=== PATIENT | male | born 1970 ===

== ENCOUNTER 2021-10-22 08:12 | Outpatient (REF) | payer OTHER, SELFPAY ==
[2021-10-22 08:27] LABS: MANUAL DIFF FLAG NO
[2021-10-22 09:00] LABS: Basophils Absolute Auto 0.1 X10*3/uL (0.0-0.2); Basophils Percent Auto 2.1 % (0-2); Eosinophils Absolute Auto 0.2 X10*3/uL (0.0-0.4); Eosinophils Percent Auto 4.8 % (0-4); Hematocrit 43.7 % (42.0-52.0); Imm Gran Abs Auto 0.01 X10*3/uL (0.00-0.03); Imm Gran Pct Auto 0.2 % (0.0-0.4); Lymphocytes Absolute Auto 1.5 X10*3/uL (1.2-4.9); Lymphocytes Percent Auto 33.6 % (20-40); Mean Corpuscular Volume 84.4 fL (80.0-98.0); Mean Platelet Volume 10.3 fL (9.4-12.4); Monocytes Absolute Auto 0.4 X10*3/uL (0.1-1.2); Monocytes Percent Auto 9.9 % (2-11); Neutrophils Absolute Auto 2.1 x10*3/uL (2.0-8.3); Neutrophils Percent Auto 49.4 % (45-73); Platelet Count 278 X10*3/uL (160-400); Red Blood Count 5.18 X10*6/uL (4.60-5.80); Red Cell Distribution Width 13.1 % (11.0-16.0); White Blood Count 4.3 X10*3/uL (4.8-10.8)
[2021-10-22 09:10] LABS: Estimated Average Glucose 114 mg/dL; Hemoglobin A1c % 5.6 %
[2021-10-22 10:17] LABS: Prostate Specific Antigen Scr 0.74 ng/mL (<0.05-4.0); TSH reflex Free T4 1.52 uIU/mL (0.32-4.0)
[2021-10-22 10:19] LABS: Alanine Aminotransferase 14 U/L (0-40); Albumin Level 4.1 g/dL (3.5-5.0); Alkaline Phosphatase 58 U/L (39-117); Anion Gap 13 (12-20); Aspartate Amino Transferase 21 U/L (5-37); Bilirubin Total 0.9 mg/dL (0.0-1.0); Blood Urea Nitrogen 17 mg/dL (9-16); Calcium 9.6 mg/dL (8.4-10.2); Carbon Dioxide 26 mmol/L (22-29); Chloride 105 mmol/L (96-108); Cholesterol 196 mg/dL; Estimated Glomerular Filt Rate > 60; Glucose Fasting 90 mg/dL (60-99); HDL Cholesterol 49 mg/dL; LDL Cholesterol Calculated 129 mg/dl; Potassium 4.4 mmol/L (3.3-5.1); Sodium 140 mmol/L (135-145); Triglycerides 91 mg/dL
[2021-10-22 10:25] LABS: Folate 14.6 ng/mL (> or = 4.0); Vitamin B12 477 pg/mL (200-900)
[2021-10-27 17:51] LABS: Vitamin D 25-OH, D2 <4 ng/mL; Vitamin D 25-OH, D3 15 ng/mL; Vitamin D 25-OH, Total 15 ng/mL (30-100)
== END 2021-10-22 08:13 | disposition home or self-care (01) ==
LOC: HO.LAB 08:12
PROVIDERS: PCP Nurse Practitioner Acute Care; Visit Provider Nurse Practitioner Acute Care
DX: Z12.5 Encounter for screening for malignant neoplasm of prostate (principal); Z76.89 Persons encountering health services in other specified circumstances
CPT/HCPCS: 36415; 80053; 80061; 82306; 82607; 82746; 83036; 84153; 84443; 85025

== ENCOUNTER 2022-11-01 08:38 | Day surgery (SDC) | payer OTHER, SELFPAY ==
[2022-10-25 19:27] VITALS: BMI 22.5
[2022-11-01 08:43] VITALS: BP 111/81; PULSE 78; RESP 18; TEMP 36.1; O2SAT 98
--- NOTE | 2022-11-01 09:00 | MHC.SHP ---
Pre-Procedural Eval Section A Date of Service: 11/01/22 Section B Chief Complaint: screening Relevant Family History (Specify if Yes): No Relevant Social History: None Present Medications: see Short Stay Collaborative assessment Medical History: Significant History (vit d defc) History of Previous Operations: Relevant previous surgery/procedure and date(s) (shoulder and wrist surgery) Allergies: Allergies Allergy/AdvReac Type Severity Reaction Status Date / Time Penicillins [PENICILLINS] Allergy Mild RASHES, Verified 01/27/22 17:43 CRAMPING penicillin V Allergy Unknown Unknown Verified 01/27/22 17:43 Review of Systems Sugical H&P ROS: Negative: Constitution, Cardiovascular, Respiratory, Neurological, Psychiatric, Hem-Onc, Allergic/Immunologic, Gastrointestinal, Genitourinary, Musculoskeletal, Integumentary, Endocrine and Eyes/Ears/Nose/Throat Exam Surgical H&P Exam: Normal: HEENT, Normal: Heart, Normal: Lungs, Normal: Extremities, Normal: Abdomen, Normal: Skin and Normal: Neurological Plan Diagnosis/Plan: Unchanged I have reviewed the history and physical and performed a pertinent physical examination on my patient. No changes have occurred unless specified. Time Spent With Patient Time: Total time managing care of this patient today ____ minutes.
[2022-11-01] MEDS: Lactated Ringers 1,000 ML 80 ML IVCONT (09:03)
--- NOTE | 2022-11-01 09:47 | P.OP_ITS ---
Operative Note Operative Note Date of Service: 11/01/22 Narrative: Operative Information Procedure Description: Colonoscopy Indication: screening Anesthesia: MAC COLONOSCOPY Instrument: Olympus variable stiffness pediatric scope 190L Colonoscopy Monitoring: Vital signs and clinical assessment, continuous EKG monitoring, Pulse oximetry, Carbon Dioxide monitoring and blood pressure monitoring were done throughout the procedure. Colon withdrawal time was 10 minutes. Procedure: The patient was placed in the left lateral decubitis position and pre-procedure medications were administered. After a digital rectal examination of the ano-rectum, the video colonoscope was inserted into the rectum and advanced through the colon to the cecum/TI. The colonoscope was slowly withdrawn in a retrograde panoramic fashion and the colon mucosa was carefully examined including a retroflexed view of the rectum. Findings and interventions are described below. Procedure Difficulty: easy Findings: Terminal Ileum-normal Cecum:normal Ascending Colon: normal Transverse Colon -normal Descending Colon:normal Sigmoid Colon: mild diverticulosis Rectum: Retroflexion with small internal hemorrhoids, grade I, 10 mm sessile polyp removed with cold snare Anorectum - normal Colon preparation: [place] Bowel Preparation Scale Right colon; 2 Transverse colon: 2 Left colon; 2 (0 = Unprepared colon segment with mucosa not seen due to solid stool that cannot be cleared. 1 = Portion of mucosa of the colon segment seen, but other areas of the colon segment not well seen due to staining, residual stool and/or opaque liquid. 2 = Minor amount of residual staining, small fragments of stool and/or opaque liquid, but mucosa of colon segment seen well. 3 = Entire mucosa of colon segment seen well with no residual staining, small fragments of stool or opaque liquid) Impression and Post Procedure Diagnosis: polyp internal hemorrhoids diverticular disease Plan: High fiber diet leaflet Avoid straining at stool, epsom salts and sitz bath, anusol supps or cream Repeat Colonoscopy in 5-7 years if adenomatous polyp, otherwise 10 yrs or earlier if clinically indicated Above findings were reviewed with the patient and relevant handouts were provided if indicated.
--- NOTE | 2022-11-01 09:54 | HO.ANESPROP2 ---
HPI - Anesthesia Eval Consult details Narrative: colonospy PMFSH Active Problems Active Problems: All Active Problems (Updated 01/27/22 @ 22:55 by Reny Javier CNP) Encounter to establish care (Acute) Vitamin D deficiency (Acute) Annual physical exam (Acute) Tinea pedis (Acute) Past Medical History Medical History History of right shoulder fracture Tinea pedis Family History Family History Mother High blood pressure Glaucoma Father Dementia Alzheimer's dementia Family history of problems with anesthesia: No Surgical History Surgical History (Updated 10/25/22 @ 19:30 by Cindi Hadley RN) H/O left wrist surgery History of arthroscopy of right shoulder History of Problems with Anesthesia: No Social History Social History Housing: House Alcohol intake: current Alcohol intake frequency: a few times a week Patient Tobacco Use Status: Former Tobacco user Quit Date: 2021 Second Hand Smoke Exposure: Yes Use of substances other than those prescribed or required for medical reasons: No Are you DNR?: No Advance Directives: No Advance Directives Information Provided: Yes Advance Directives on File: No Recently lost weight without trying: No Nutrition Risks: No Nutritional Risk service: No Current occupational status: employed 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 Cognitive needs: No Hearing needs: No Vision needs: No Meds Allergies Allergy/AdvReac Type Severity Reaction Status Date / Time Penicillins [PENICILLINS] Allergy Mild RASHES, Verified 01/27/22 17:43 CRAMPING penicillin V Allergy Unknown Unknown Verified 01/27/22 17:43 Active Medications: Current Medications Lactated Ringer's (Lr) 1,000 mls @ 80 mls/hr IVCONT .[id number] MELANIE Last Admin: 11/01/22 09:03 Dose: 80 mls/hr Home Medications Medication Instructions Recorded Confirmed Last Taken Type No Known Home Meds 11/01/22 11/01/22 Unknown History Exam Exam Date and Time: November 01, 2022 0954 Height,Weight and Vital Signs: Height 5 ft 8 in Weight 67.132 kg Last Vital Signs Temp 97 F 11/01/22 08:43 Pulse 78 11/01/22 08:43 Resp 18 11/01/22 08:43 BP 111/81 11/01/22 08:43 Pulse Ox 98 11/01/22 08:43 O2 Del Method 11/01/22 08:43 Airway Mallampati Class: II TM Dist: >3cm Neck ROM: Limited Heart: rrr Lungs: cta Assessment and Plan Final Anesthetic Review Family History of Problems with Anesthesia: No History of Problems with Anesthesia: No NPO: Yes ASA Class: II Final Preanesthetic Review: No Changes in Pt Med Stat, Meds/Allgs Chart Reviewed, Consent Obtained/Reviewed and Anes Risks/Benef Reviewed Patient Risk: Low Procedure Risk: Low Anesthetic Plan Anesthetic Plan: MAC: Disposition: Standard PACU
[2022-11-01 10:42] VITALS: BP 113/55; PULSE 75; RESP 16; TEMP 36.4
[2022-11-01 10:57] VITALS: BP 105/78; PULSE 77; RESP 16; TEMP 36.5; O2SAT 98
== END 2022-11-01 11:52 | disposition home or self-care (01) ==
PROVIDERS: Visit Provider Internal Medicine Gastroenterology
PROC: 0DJD8ZZ Inspection of Lower Intestinal Tract, Via Natural or Artificial Opening Endoscopic (ICD-10-PCS; CPT 45378; principal; 2022-11-01 10:00)
DX: Z12.11 Encounter for screening for malignant neoplasm of colon (principal); K62.1 Rectal polyp; K57.30 Diverticulosis of large intestine without perforation or abscess without bleeding; K64.0 First degree hemorrhoids; E55.9 Vitamin D deficiency, unspecified; B35.3 Tinea pedis; Z88.0 Allergy status to penicillin; Z87.891 Personal history of nicotine dependence
CPT/HCPCS: 45385; 88305

== ENCOUNTER 2024-02-06 07:49 | Outpatient (AMB) | payer OTHER, SELFPAY ==
--- NOTE | 2024-02-06 08:01 | MHC.PC.OV ---
Vital Signs 02/06/24 08:02 Height 5 ft 8 in Weight 159 lb 6 oz BMI 24.2 BP 126/78 Blood Pressure Location Rt brachial Position Sitting Respiration 14 Pulse 73 Pulse Source Pulse Oximeter Temp 97.3 F Temp Source Temporal Artery Scan Pulse Oximetry (%) 99 Intake Visit Reasons: Xfer care/general check up Operations Support Professionals Required: No Accompanied by: Self / Same As Patient Allergies Penicillins [PENICILLINS] Allergy (Mild, Verified 02/06/24 08:10) RASHES, CRAMPING penicillin V Allergy (Unknown, Verified 02/06/24 08:10) Unknown Medication List - Last Reconciled 02/06/24 by Stephane Zambrano CNP No Known Home Meds Tobacco use date assessed: 02/06/24 Dental Screening Dental Screen Date: 02/06/24 Did you have a dental visit in the last 12 months?: Yes Did you have a dental problem in the last 6 months where you did not have access to dental care?: No Was dental information given to patient?: Patient has dentist HPI HPI Comments History of Present Illness Details 53-year-old male presents for transfer of care His former PCP was Reny Javier CNP. His last office visit/CPE/labs was in 2021 He has history of vitamin-D deficiency He has not prescription medications He offers no complaints and denies acute symptoms at this time Quit smoking in September 2021; he smoked an average of 3 packs weekly for 25 years. Drinks alcohol occasionally. No recreational drug use Last colonoscopy was in 11/01/2022: Hyperplastic polyp He has not been vaccinated for shingles He is not up-to-date on the flu vaccine. He declines the flu vaccine and notes he never get vaccinated for the flu [facility] Medical History Tinea pedis History of right shoulder fracture Surgical History History of arthroscopy of right shoulder H/O left wrist surgery Family History Mother High blood pressure Glaucoma Father Dementia Alzheimer's dementia Social History Household Members: Spouse and Family Both parents involved: No Caregiver staying overnight: No Housing: House Are you a primary clinical care coordinator to a significant other at home: No Do you presently have visiting nurse or other home services: No 75 years or older and lives alone: No Alcohol intake: current Alcohol intake frequency: a few times a week Alcohol type: beer Patient Tobacco Use Status: Former Tobacco user Quit Date: 2021 e-Cigarette/Vaping Use: Never Used Second Hand Smoke Exposure: Yes service: No Current occupational status: employed 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 1. Little interest or pleasure in doing things: not at all 2. Feeling down, depressed, or hopeless: not at all 3. Trouble falling or staying asleep, or sleeping too much: not at all 4. Feeling tired or having little energy: not at all 5. Poor appetite or overeating: not at all 6. Feeling bad about yourself - or that you are a failure or have let yourself or your family down: not at all 7. Trouble concentrating on things, such as reading the newspaper or watching television: not at all 8. Moving or speaking so slowly that other people could have noticed. Or the opposite - being so fidgety or restless that you have been moving around a lot more than usual: not at all 9. Thoughts that you would be better off or of hurting yourself in some way: not at all Total score: 0 Depression Screening Interpretation: Negative Depression Screening Done: Yes 00651 - PHQ-9 Billing: Yes Source: Developed by Drs. Erik Forrester, Jes Carias, Dav Garcia and colleagues, with an educational nikki from [employer]. Thrive Questionnaire Date Thrive assessed: 02/06/24 I am a: Patient What is your living situation today?: I have a steady place to live Within the past 12 months, did the food you bought not last and you didn't have the money to get more?: Never true Within the past 12 months, did you worry whether your food would run out before you got money to buy more?: Never true Do you have trouble paying for medicines?: No Do you have trouble getting transportation to medical appointments?: No Do you have trouble paying your heating and electricity bill?: No Do you have trouble taking care of your child, family member or friend?: No Do you have trouble with day-to-day activities such as bathing, preparing meals, shopping, managing finances, etc.?: No Are you currently unemployed and looking for a job?: No Are you interested in more education?: Yes Please select the resources that you would like help with: Education Currently or been in a relationship where the following occur: no concerns reported THRIVE Score: 0 AUDIT C Alcohol Use Questionnaire (AUDIT-C) 1. How often do you have a drink containing alcohol?: 2-3 times a week 2. How many drinks containing alcohol do you have on a typical day when you are drinking?: 1 or 2 3. How often do you have six or more drinks on one occasion?: Never Total Score: 3 FARIDEH-7 AMB Questionnaire FARIDEH-7 Date FARIDEH - 7 assessed: 02/06/24 Feeling nervous, anxious, or on edge: 0 = Not at all Not being able to stop or control worryin = Not at all Worrying too much about different things: 0 = Not at all Trouble relaxin = Not at all Being so restless that it is hard to sit still: 0 = Not at all Becoming easily annoyed or irritable: 0 = Not at all Feeling afraid as if something awful might happen: 0 = Not at all Total FARIDEH-7 score (0-4 normal; 5-9 mild; 10-14 moderate; 15-21 severe): 0 Source: Developed by Drs. Erik Forrester, Jes Carias, Dav Garcia and colleagues, with an educational nikki from [employer]. Review of Systems Const Details: Denies chills, Denies fatigue, Denies fever(s), Denies headache(s) and Denies weakness HEENT Denies change in vision, Denies dizziness, Denies headache(s), Denies hearing loss, Denies nasal congestion, Denies sinus pain, Denies sinus pressure and Denies sore throat Card Denies chest pain, Denies lightheadedness, Denies dyspnea and Denies other (palpitations) Resp Denies cough, Denies dyspnea and Denies wheezing GI Denies abdominal pain, Denies melena, Denies hematochezia, Denies change in bowel habits, Denies dyspepsia and Denies nausea Denies hematuria and Denies dysuria Musc Denies abnormal gait, Denies myalgias, Denies arthralgias, Denies numbness and Denies tingling Skin/Breast Denies rash, Denies unusual bruising and Denies wounds Neuro Denies abnormal gait, Denies dizziness, Denies headache(s), Denies memory loss, Denies numbness, Denies Sensory deficit (Neuro), Denies tingling and Denies weakness Psych Denies anxiety, Denies depression and Denies memory loss Endo Denies cold intolerance, Denies fatigue, Denies heat intolerance, Denies polydipsia and Denies polyuria Abraham/Lymph Denies easy bleeding and Denies easy bruising Aller/Immun Denies wheezing Physical exam (Primary Care) Vital Signs: Last Vital Signs Temp 97.3 F 02/06/24 08:02 Pulse 73 02/06/24 08:02 Resp 14 02/06/24 08:02 BP 126/78 02/06/24 08:02 Pulse Ox 99 02/06/24 08:02 BMI result Body Mass Index 24.2 Tobacco/Smoking Status: Tobacco use Status Tobacco use date assessed 02/06/24 02/06/24 08:08 Patient Tobacco Use Status Former Tobacco user 02/06/24 08:08 e-Cigarette/Vaping Use Never Used 02/06/24 08:08 Depression Screening Interpretation: Negative Thrive Assessment: Date of Thrive Assessment Date Thrive assessed 02/06/24 02/06/24 08:08 Currently or been in a relationship where the following occur: no concerns reported Const Other: General: no acute distress, well developed, alert and awake Nutritional Appearance: well nourished Orientation/consciousness: patient oriented x3 HENMT Head: Yes normocephalic and Yes atraumatic Ears: hearing grossly normal bilaterally and TM's normal bilaterally General nose exam: Normal external nose present and Normal nares present Mouth: Normal oral and palatal mucosa present and moist mucous membranes Teeth and gingiva: dentition normal Throat: Yes oropharynx normal Eyes Pupils: Equal, round and reactive pupils present and Pupil accommodation reflex normal EOM: EOMs intact bilaterally Neck Neck: Yes normal visual inspection, Yes no lymphadenopathy and Yes trachea midline Thyroid: Thyroid normal Carotids: no bruits Lymphatic: no lymphadenopathy noted Chest Chest palpation & inspection: normal inspection of the chest Resp Effort & Inspection: normal respiratory effort Auscultation: clear to auscultation bilaterally Cardio Rate: regular rate Rhythm: regular rhythm Heart sounds: S1 normal heart sound present, S2 normal heart sound present, no gallops, no murmurs and no rubs Bruits: no abdominal aortic bruits and no carotid bruits GI Palpation (GI): No Abdominal aortic bruit present, Soft to palpation, nontender, No hepatosplenomegaly present and No Rebound tenderness present Auscultation: normal bowel sounds General: Yes no CVA tenderness Back/Spine/Pelvis Back: no CVA tenderness Cervical Spine: cervical ROM normal and No Cervical spine tenderness Thoracic/Lumbar Spine: thoraco-lumbar ROM normal, No pain with thoraco-lumbar ROM, No thoracic spinal tenderness and No lumbar spinal tenderness Skin General: warm and dry. Normal skin color. Normal skin turgor Lesions: no lesions Rashes: no rashes Trauma: no lacerations or abrasions Wounds: no wounds Nails: normal Neuro General: patient oriented x3, gait normal and CN's II-XI intact bilaterally Cranial nerves: Yes Equal, round and reactive pupils present Cognition (Neuro): normal cognition Gait exam (Neuro): Normal gait present Motor exam (neuro): 5/5 motor strength present throughout Sensory Exam: No Sensory deficit (Neuro) Deep tendon reflexes (DTR's): Right patellar reflex intensity grade: 2+ and Left patellar reflex intensity grade: 2+ Extrem General: Yes normal to inspection, No edema and No calf tenderness Psych Appearance: grossly normal Affect: normal affect Attitude: cooperative Thought process: Normal thought process present Assessment and Plan Assessment & Plan (1) Normal physical examination, routine: Code(s): Z00.00 - Encounter for general adult medical examination without abnormal findings Plan: No significant physical restrictions or limitations noted Healthy diet and routine exercise encouraged Advised to get lab work done and schedule a telehealth visit for labs review Follow-up with symptoms or concerns Verbalized understanding and agreed with treatment plan (2) Vitamin D deficiency: Code(s): E55.9 - Vitamin D deficiency, unspecified Plan: Not currently on vitamin-D supplement Will check lab (3) Vaccine counseling: Code(s): Z71.85 - Encounter for immunization safety counseling Plan: He has not been vaccinated for shingles Instructed on importance of vaccination and encouraged to get vaccinated for shingles. He may request vaccine from his local pharmacy Verbalized understanding and agreed with the plan (4) Laboratory tests ordered as part of a complete physical exam (CPE): Code(s): Z00.00 - Encounter for general adult medical examination without abnormal findings Plan: Fasting labs ordered in preparation of a complete physical exam. Advised to fast for at least 10 hours before getting labs drawn. May drink water Verbalized understanding and agreed with treatment plan. Orders: Orders Complete Blood Count Auto Diff Today Z00.00 - Encounter for general adult medical examination without abnormal findings Comprehensive [place]. Panel Fast Today Z00.00 - Encounter for general adult medical examination without abnormal findings TSH reflex Free T4 Today Z00.00 - Encounter for general adult medical examination without abnormal findings Lipid Panel Today Z00.00 - Encounter for general adult medical examination without abnormal findings UA CC w/rflx Micro + Cult Today Z00.00 - Encounter for general adult medical examination without abnormal findings PSA, Ultra Sensitive Today Z00.00 - Encounter for general adult medical examination without abnormal findings Vitamin D 25-OH Total Today Z00.00 - Encounter for general adult medical examination without abnormal findings Microalbumin, Random (w Creat) Today Z00.00 - Encounter for general adult medical examination without abnormal findings Coding Level of Care Code New Pt Prev Care 40-64y(72422) Diagnoses Normal physical examination, routine Z00.00 Vitamin D deficiency E55.9 Vaccine counseling Z71.85 Laboratory tests ordered as part of a complete physical exam (CPE) Z00.00
[2024-02-06 08:02] VITALS: BP 126/78; PULSE 73; RESP 14; TEMP 36.3; O2SAT 99; BMI 24.2
== END 2024-02-06 08:34 | disposition home or self-care (01) ==
PROVIDERS: Visit Provider Nurse Practitioner Family
DX: Z00.00 Encounter for general adult medical examination without abnormal findings (principal); E55.9 Vitamin D deficiency, unspecified; Z71.85 Encounter for immunization safety counseling
CPT/HCPCS: 99386

== ENCOUNTER 2024-02-08 08:45 | Outpatient (REF) | payer OTHER, SELFPAY ==
[2024-02-08 11:26] LABS: MANUAL DIFF FLAG NO
[2024-02-08 11:37] LABS: Basophils Absolute Auto 0.1 X10*3/uL (0.0-0.2); Basophils Percent Auto 2.3 % (0-2); Eosinophils Absolute Auto 0.2 X10*3/uL (0.0-0.4); Eosinophils Percent Auto 5.8 % (0-4); Hematocrit 41.6 % (42.0-52.0); Hemoglobin 13.1 g/dl (14.0-18.0); Imm Gran Abs Auto 0.01 X10*3/uL (0.00-0.03); Imm Gran Pct Auto 0.3 % (0.0-0.4); Lymphocytes Absolute Auto 1.3 X10*3/uL (1.2-4.9); Lymphocytes Percent Auto 39.2 % (20-40); Mean Corpuscular HGB Conc 31.5 g/dl (31.0-36.0); Mean Corpuscular Hemoglobin 26.5 pg (27.0-33.0); Mean Corpuscular Volume 84.2 fL (80.0-98.0); Mean Platelet Volume 10.1 fL (9.4-12.4); Monocytes Absolute Auto 0.3 X10*3/uL (0.1-1.2); Monocytes Percent Auto 9.4 % (2-11); Neutrophils Absolute Auto 1.5 x10*3/uL (2.0-8.3); Platelet Count 292 X10*3/uL (160-400); Red Blood Count 4.94 X10*6/uL (4.60-5.80); Red Cell Distribution Width 13.4 % (11.0-16.0); White Blood Count 3.4 X10*3/uL (4.8-10.8)
[2024-02-08 12:15] LABS: Appearance Urine Clear; Color Urine Yellow; Glucose Urine UA Negative (Negative); Leukocyte Esterase Urine Negative (Negative); Nitrite Urine Negative (Negative); PH 6.5 (5.0-9.0); Specific Gravity - Urine >= 1.030 (1.005-1.025); UMIC TRIGGER UACC YES; Urine Blood Trace (Negative); Urine Ketones Negative (Negative); Urine Protein Negative (Neg-Trace)
[2024-02-08 12:19] LABS: Bacteria Urine None Seen (None Seen); Hyaline Casts Urine 0-2 /LPF (0-2); Squamous Epithelial Cell Urine 0-2 /HPF (0-2); WBC Urine 0-5 /HPF (0-5)
[2024-02-08 12:37] LABS: Alanine Aminotransferase 18 U/L (0-40); Albumin Level 4.1 g/dL (3.5-5.0); Alkaline Phosphatase 63 U/L (39-117); Anion Gap 10 (12-20); Aspartate Amino Transferase 18 U/L (5-37); Bilirubin Total 0.6 mg/dL (0.0-1.0); Blood Urea Nitrogen 20 mg/dL (9-16); Calcium 9.3 mg/dL (8.4-10.2); Carbon Dioxide 29 mmol/L (22-29); Chloride 104 mmol/L (96-108); Cholesterol 205 mg/dL (<200); Estimated Glomerular Filt Rate > 60; Glucose Fasting 90 mg/dL (60-99); HDL Cholesterol 54 mg/dL (>40); LDL Cholesterol Calculated 127 mg/dL (<100); Potassium 4.2 mmol/L (3.3-5.1); Sodium 139 mmol/L (135-145); Total Protein 7.1 g/dL (6.5-8.0); Triglycerides 122 mg/dL (<150)
[2024-02-08 13:00] LABS: TSH reflex Free T4 0.91 uIU/mL (0.32-4.0); Vitamin D 25-OH Total 16.9 ng/mL (>30)
[2024-02-08 13:02] LABS: Creatinine Urine 243.38 mg/dL; Microalbum/Creatinine Ratio Ur 2.8 ug/mg cr (<30)
[2024-02-21 00:29] LABS: PSA, Ultra Sensitive 0.64 ng/mL
== END 2024-02-08 08:46 | disposition home or self-care (01) ==
LOC: HO.WFDLDS 08:45
PROVIDERS: Visit Provider Nurse Practitioner Family
DX: Z00.00 Encounter for general adult medical examination without abnormal findings (principal)
CPT/HCPCS: 36415; 80053; 80061; 81001; 81003; 82043; 82306; 82570; 84153; 84443; 85025

== ENCOUNTER 2024-02-27 15:23 | Outpatient (AMB) | payer OTHER, SELFPAY ==
--- NOTE | 2024-02-27 09:19 | A.OFFPC_ITS ---
Intake Visit Reasons: 2-3 wks [facility] labs [place] Hearing Officer Required: No Allergies Penicillins [PENICILLINS] Allergy (Mild, Verified 02/27/24 15:20) RASHES, CRAMPING penicillin V Allergy (Unknown, Verified 02/27/24 15:20) Unknown Tobacco use date assessed: 02/06/24 Dental Screening Dental Screen Date: 02/06/24 HPI HPI Comments History of Present Illness Details 53-year-old male presents for a [facility] visit for review of recent lab work He offers no complaints and denies acute symptoms at this time [facility] Medical History Tinea pedis History of right shoulder fracture Surgical History History of arthroscopy of right shoulder H/O left wrist surgery Family History Mother High blood pressure Glaucoma Father Dementia Alzheimer's dementia Social History Household Members: Spouse and Family Both parents involved: No Caregiver staying overnight: No Housing: House Are you a primary care program resident to a significant other at home: No Do you presently have visiting nurse or other home services: No 75 years or older and lives alone: No Alcohol intake: current Alcohol intake frequency: a few times a week Alcohol type: beer Patient Tobacco Use Status: Former Tobacco user e-Cigarette/Vaping Use: Never Used Second Hand Smoke Exposure: Yes service: No Current occupational status: employed 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 Erik Forrester, Jes Carias, Dav Garcia and colleagues, with an educational nikki from [employer]. Review of Systems Const Details: Const Denies chills, Denies fatigue, Denies fever(s), Denies headache(s) and Denies weakness ENT Denies dizziness and Denies headache(s) Card Denies chest pain, Denies lightheadedness, Denies dyspnea and Denies other (Palpitations) Resp Denies cough, Denies dyspnea, Denies wheezing and Denies other ( shortness of breath) GI Denies abdominal pain, Denies melena, Denies hematochezia, Denies change in bowel habits, Denies dyspepsia and Denies nausea Denies hematuria and Denies dysuria Musc Denies abnormal gait, Denies myalgias, Denies arthralgias, Denies numbness and Denies tingling Skin/Breast Denies rash, Denies unusual bruising and Denies wounds Neuro Denies abnormal gait, Denies dizziness, Denies headache(s), Denies memory loss, Denies numbness, Denies Sensory deficit (Neuro), Denies tingling and Denies weakness Psych Denies anxiety, Denies depression, Denies memory loss Endo Denies cold intolerance, Denies fatigue, Denies heat intolerance, Denies polydipsia and Denies polyuria Aller/Immun Denies wheezing Physical exam (Primary Care) Tobacco/Smoking Status: Tobacco use Status Tobacco use date assessed 02/06/24 02/27/24 09:25 Patient Tobacco Use Status Former Tobacco user 02/27/24 09:25 e-Cigarette/Vaping Use Never Used 02/27/24 09:25 Thrive Assessment: Date of Thrive Assessment Date Thrive assessed 02/06/24 02/27/24 09:25 Const Other: Telehealth visit. No physical exam Telehealth Telehealth Telehealth Platform: Telephone Location of provider rendering services: practice address Location of patient: other Patient Identification confirmed using: Name, : No Telehealth method: voice only Patient verbally consented to treatment: Yes Patient verbally consented to billing insurance company: Yes Patient informed of any privacy concerns related to visit: Yes Assessment and Plan Assessment & Plan (1) Vitamin D deficiency: Code(s): E55.9 - Vitamin D deficiency, unspecified Plan: Recent lab results reviewed with the patient Vitamin-D level is low, 16.9 Vitamin D3 3000 units ordered. Advised to take as prescribed. Instructed on the risks, benefits, and potential adverse reactions of the medication Will recheck vitamin-D level. Advised to get blood work done a few days before his next visit Follow-up in 3 months or return sooner with symptoms or concerns Verbalized understanding and agreed with treatment plan (2) Hypercholesterolemia: Code(s): E78.00 - Pure hypercholesterolemia, unspecified Plan: Recent total cholesterol is slightly elevated, 205 Advised to limit foods high in saturated fat and avoid foods high in trans fat Routine exercise encouraged Will recheck lipid panel. Advised to fast for 10-12 hours, may drink water only, and get blood work done a few days before his next visit Follow-up in 3 months Verbalized understanding and agreed with treatment plan Medications: New cholecalciferol (vitamin D3) 75 mcg PO DAILY 90 days 90 tabs 0RF Coding Level of Care Code Tele Est Pt Level 3 (46842) Diagnoses Vitamin D deficiency E55.9 Hypercholesterolemia E78.00 Time Spent (min) 10
== END 2024-02-27 15:56 | disposition home or self-care (01) ==
LOC: HO.HMGFM 15:23
PROVIDERS: Visit Provider Nurse Practitioner Family
DX: E78.00 Pure hypercholesterolemia, unspecified (principal); E55.9 Vitamin D deficiency, unspecified
CPT/HCPCS: 99213

== ENCOUNTER 2024-05-24 07:56 | Outpatient (REF) | payer OTHER, SELFPAY ==
[2024-05-24 11:27] LABS: Appearance Urine Turbid; Color Urine Yellow; Glucose Urine UA Negative (Negative); Leukocyte Esterase Urine Negative (Negative); Nitrite Urine Negative (Negative); Specific Gravity - Urine >= 1.030 (1.005-1.025); UMIC TRIGGER UACC YES; Urine Blood Trace (Negative); Urine Ketones Trace mg/dL (Negative); Urine Protein Trace mg/dL (Neg-Trace)
[2024-05-24 11:32] LABS: Bacteria Urine None Seen (None Seen); Hyaline Casts Urine 0-2 /LPF (0-2); Squamous Epithelial Cell Urine 0-2 /HPF (0-2); WBC Urine 0-5 /HPF (0-5)
== END 2024-05-24 07:57 | disposition home or self-care (01) ==
LOC: HO.WFDLDS 07:56
PROVIDERS: Visit Provider Nurse Practitioner Family
DX: Z00.00 Encounter for general adult medical examination without abnormal findings (principal)
CPT/HCPCS: 81001

== ENCOUNTER 2024-05-31 08:22 | Outpatient (AMB) | payer OTHER, SELFPAY ==
--- NOTE | 2024-05-31 08:24 | MHC.PC.OV ---
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 Allergies Penicillins [PENICILLINS] Allergy (Mild, Verified 05/31/24 08:27) RASHES, CRAMPING penicillin V Allergy (Unknown, Verified 05/31/24 08:27) Unknown Tobacco use date assessed: 05/31/24 Dental Screening Dental Screen Date: 05/31/24 Did you have a dental visit in the last 12 months?: Yes Did you have a dental problem in the last 6 months where you did not have access to dental care?: No Was dental information given to patient?: Patient has dentist HPI HPI Comments History of Present Illness Details 54-year-old male presents for hyperlipidemia and vitamin-D deficiency follow-up He admits to taking his medications as prescribed without adverse reactions He admits to making healthy dietary changes He did not get lipid panel and vitamin-D blood work before this visit He offers no complaints and denies acute symptoms at this time [facility] Medical History Tinea pedis History of right shoulder fracture Surgical History History of arthroscopy of right shoulder H/O left wrist surgery Family History Mother High blood pressure Glaucoma Father Dementia Alzheimer's dementia Social History Household Members: Spouse and Family Both parents involved: No Caregiver staying overnight: No Housing: House Are you a primary animal care giver to a significant other at home: No Do you presently have visiting nurse or other home services: No 75 years or older and lives alone: No Alcohol intake: current Alcohol intake frequency: a few times a week Alcohol type: beer Patient Tobacco Use Status: Former Tobacco user e-Cigarette/Vaping Use: Never Used Second Hand Smoke Exposure: Yes service: No Current occupational status: employed 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 Erik Forrester, Jes Carias, Dav Garcia and colleagues, with an educational nikki from [employer]. Review of Systems Const Details: Const Denies chills, Denies fatigue, Denies fever(s), Denies headache(s) and Denies weakness ENT Denies dizziness and Denies headache(s) Card Denies chest pain, Denies lightheadedness, Denies dyspnea and Denies other (Palpitations) Resp Denies cough, Denies dyspnea, Denies wheezing and Denies other ( shortness of breath) GI Denies abdominal pain, Denies melena, Denies hematochezia, Denies change in bowel habits, Denies dyspepsia and Denies nausea Denies hematuria and Denies dysuria Musc Denies abnormal gait, Denies myalgias, Denies arthralgias, Denies numbness and Denies tingling Skin/Breast Denies rash, Denies unusual bruising and Denies wounds Neuro Denies abnormal gait, Denies dizziness, Denies headache(s), Denies memory loss, Denies numbness, Denies Sensory deficit (Neuro), Denies tingling and Denies weakness Psych Denies anxiety, Denies depression, Denies memory loss Endo Denies cold intolerance, Denies fatigue, Denies heat intolerance, Denies polydipsia and Denies polyuria Aller/Immun Denies wheezing Physical exam (Primary Care) Vital Signs: Last Vital Signs Temp 97.7 F 05/31/24 08:28 Pulse 70 05/31/24 08:28 Resp 16 05/31/24 08:28 BP 110/72 05/31/24 08:28 Pulse Ox 99 05/31/24 08:28 Oxygen Delivery Method Room Air 05/31/24 08:28 BMI result Body Mass Index 24.2 Tobacco/Smoking Status: Tobacco use Status Tobacco use date assessed 05/31/24 05/31/24 08:30 Patient Tobacco Use Status Former Tobacco user 09/06/24 08:26 e-Cigarette/Vaping Use Never Used 05/31/24 08:26 Thrive Assessment: Date of Thrive Assessment Date Thrive assessed 02/06/24 05/31/24 08:26 Const Other: General: no acute distress and well developed Nutritional Appearance: well nourished Orientation/consciousness: patient oriented x3 [facility] Head: Yes normocephalic and Yes atraumatic Eyes General: appearance normal, both eyes and all related structures Pupils: Equal, round and reactive pupils present EOM: EOMs intact bilaterally Resp Effort & Inspection: normal respiratory effort Auscultation: clear to auscultation bilaterally Cardio Rate: regular rate Rhythm: regular rhythm Heart sounds: S1 normal heart sound present, S2 normal heart sound present, no gallops, no murmurs and no rubs GI Palpation (GI): No Abdominal aortic bruit present, Soft to palpation, nontender, No hepatosplenomegaly present and No Rebound tenderness present Auscultation: normal bowel sounds General: Yes no CVA tenderness Back/Spine/Pelvis Back: no CVA tenderness Cervical Spine: cervical ROM normal and No Cervical spine tenderness Thoracic/Lumbar Spine: thoraco-lumbar ROM normal, No pain with thoraco-lumbar ROM, No thoracic spinal tenderness and No lumbar spinal tenderness Extrem General: Yes normal to inspection, No edema and No calf tenderness Skin General: warm and dry. Normal skin color. Normal skin turgor Neuro General: patient oriented x3, gait normal and no focal neuro deficit Cranial nerves: Yes Equal, round and reactive pupils present Cognition (Neuro): normal cognition Gait exam (Neuro): Normal gait present Sensory Exam: No Sensory deficit (Neuro) Psych Appearance: grossly normal Affect: normal affect Attitude: cooperative Thought process: Normal thought process present Assessment and Plan Assessment & Plan (1) Vitamin D deficiency: Code(s): E55.9 - Vitamin D deficiency, unspecified Plan: Vitamin-D level ordered. Will review results and make changes as needed. Will contact the patient for his follow-up appointment (2) Hypercholesterolemia: Code(s): E78.00 - Pure hypercholesterolemia, unspecified Plan: Lipid panel ordered. Will review results and make changes as needed. Will contact the patient for his follow-up appointment Advised to limit foods high in saturated fat and avoid foods high in trans fat Routine exercise encouraged Advised to fast for 10-12 hours, may drink water only, and get lipid panel blood work done Verbalized understanding and agreed with the treatment plan Orders: Orders Lipid Panel Today E78.00 - Pure hypercholesterolemia, unspecified Vitamin D 25-OH Total Today E55.9 - Vitamin D deficiency, unspecified Coding Level of Care Code Est Pt Level 4 (35233) Diagnoses Vitamin D deficiency E55.9 Hypercholesterolemia E78.00
[2024-05-31 08:28] VITALS: BP 110/72; PULSE 70; RESP 16; TEMP 36.5; O2SAT 99; BMI 24.2
== END 2024-05-31 08:51 | disposition home or self-care (01) ==
PROVIDERS: Visit Provider Nurse Practitioner Family
DX: E55.9 Vitamin D deficiency, unspecified (principal); E78.00 Pure hypercholesterolemia, unspecified
CPT/HCPCS: 99214

== ENCOUNTER 2025-04-24 08:15 | Outpatient (REF) | payer OTHER, SELFPAY ==
[2025-04-24 08:39] LABS: MANUAL DIFF FLAG NO
[2025-04-24 08:54] LABS: Hematocrit 40.9 % (42.0-52.0); Hemoglobin 13.6 g/dl (14.0-18.0); Imm Gran Abs Auto 0.00 X10*3/uL (0.00-0.03); Imm Gran Pct Auto 0.0 % (0.0-0.4); Lymphocytes Absolute Auto 1.2 X10*3/uL (1.2-4.9); Mean Corpuscular HGB Conc 33.3 g/dl (31.0-36.0); Mean Corpuscular Hemoglobin 27.1 pg (27.0-33.0); Mean Corpuscular Volume 81.5 fL (80.0-98.0); NRBC Abs Auto 0.000 X10*3/uL (0.0-0.012); NRBC Pct Auto 0.0 /100WBC (0.0-0.2); Platelet Count 246 X10*3/uL (160-400); Red Blood Count 5.02 X10*6/uL (4.60-5.80); White Blood Count 3.2 X10*3/uL (4.8-10.8)
[2025-04-24 09:02] LABS: Appearance Urine Cloudy; Glucose Urine UA Negative (Negative); PH 5.5 (5.0-9.0); Specific Gravity - Urine >= 1.030 (1.005-1.025); UMIC TRIGGER UACC YES
[2025-04-24 09:25] LABS: Alanine Aminotransferase 31 U/L (0-40); Albumin Level 4.3 g/dL (3.5-5.0); Alkaline Phosphatase 72 U/L (39-117); Anion Gap 11 (12-20); Aspartate Amino Transferase 29 U/L (5-37); Blood Urea Nitrogen 23 mg/dL (9-16); Calcium 8.7 mg/dL (8.4-10.2); Carbon Dioxide 26 mmol/L (22-29); Chloride 106 mmol/L (96-108); Cholesterol 207 mg/dL (<200); Estimated Glomerular Filt Rate > 60; HDL Cholesterol 57 mg/dL (>40); Potassium 4.1 mmol/L (3.3-5.1); Sodium 139 mmol/L (135-145); Total Protein 6.9 g/dL (6.5-8.0); Triglycerides 100 mg/dL (<150)
[2025-04-24 09:28] LABS: Microalbum/Creatinine Ratio Ur 2.7 ug/mg cr (<30)
[2025-04-29 22:07] LABS: PSA, Ultra Sensitive 0.64 ng/mL
== END 2025-04-24 08:16 | disposition home or self-care (01) ==
LOC: HO.LAB 08:15
PROVIDERS: PCP Nurse Practitioner Family; Visit Provider Nurse Practitioner Family
DX: Z00.00 Encounter for general adult medical examination without abnormal findings (principal); Z12.5 Encounter for screening for malignant neoplasm of prostate; E78.00 Pure hypercholesterolemia, unspecified; E55.9 Vitamin D deficiency, unspecified
CPT/HCPCS: 36415; 80053; 80061; 81001; 81003; 82043; 82306; 82570; 84153; 84443; 85025

== ENCOUNTER 2025-04-29 09:59 | Outpatient (AMB) | payer OTHER, SELFPAY ==
--- NOTE | 2025-04-29 10:02 | MHC.PC.OV ---
Vital Signs 04/29/25 10:06 Height 5 ft 8 in Weight 156 lb 8 oz BMI 23.8 BP 120/72 Blood Pressure Location Lt brachial Position Sitting Respiration 16 Pulse 87 Pulse Source Pulse Oximeter Temp 97.8 F Temp Source Temporal Artery Scan Pulse Oximetry (%) 99 Oxygen Delivery Method Room Air Intake Visit Reasons: Annual PE Intake Note: Pollo presents in the office today for his annual physical. Allergies Penicillins (PENICILLINS) Allergy (Mild, Verified 04/29/25 10:10) RASHES, CRAMPING penicillin V Allergy (Unknown, Verified 04/29/25 10:10) Unknown Tobacco use date assessed: 04/29/25 Dental Screening Dental Screen Date: 04/29/25 Did you have a dental visit in the last 12 months?: Yes Did you have a dental problem in the last 6 months where you did not have access to dental care?: No Was dental information given to patient?: Patient has dentist HPI HPI Comments History of Present Illness Details 55-year-old male presents for an extended physical exam He is not on prescription medications. Acute issue(s) - None Past Medical History - Hypercholesterolemia, vitamin-D deficiency Social History - Former smoker (quit smoking in 09/2021 after smoking 3 packs weekly x 25 years). Does not vape. Drinks 2-3 beers weekly. Denies recreational drug use - Consumes significant amount of processed food. Exercises routinely. Generally sleep well Health maintenance - Last eye exam was in 04/29/2025 [facility] [place]. Encouraged to sign a release for his PCP to obtain ophthalmology record - Last dental visit was a month ago - Last tetanus vaccine was 4 months ago at [facility] - Has not been vaccinated for the flu this season; declines vaccination - last colonoscopy was in 03/31/2023: Hyperplastic plolyp [facility] Medical History Tinea pedis History of right shoulder fracture Surgical History History of arthroscopy of right shoulder H/O left wrist surgery Family History Mother High blood pressure Glaucoma Father Dementia Alzheimer's dementia Social History (Updated 04/29/25 @ 10:06 by Marnie Antonio MA) Household Members: Spouse and Family Both parents involved: No Caregiver staying overnight: No Housing: House Are you a primary personal caregiver to a significant other at home: No Do you presently have visiting nurse or other home services: No 75 years or older and lives alone: No Alcohol intake: current Alcohol intake frequency: a few times a week Alcohol type: beer Patient Tobacco Use Status: Former Tobacco user e-Cigarette/Vaping Use: Never Used Second Hand Smoke Exposure: Yes service: No Current occupational status: employed 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 1. Little interest or pleasure in doing things: not at all 2. Feeling down, depressed, or hopeless: not at all 3. Trouble falling or staying asleep, or sleeping too much: not at all 4. Feeling tired or having little energy: not at all 5. Poor appetite or overeating: not at all 6. Feeling bad about yourself - or that you are a failure or have let yourself or your family down: not at all 7. Trouble concentrating on things, such as reading the newspaper or watching television: not at all 8. Moving or speaking so slowly that other people could have noticed. Or the opposite - being so fidgety or restless that you have been moving around a lot more than usual: not at all 9. Thoughts that you would be better off or of hurting yourself in some way: not at all Total score: 0 Depression Screening Interpretation: Negative Depression Screening Done: Yes 27762 - PHQ-9 Billing: Yes Source: Developed by Drs. Erik Forrester, Jes Carias, Dav Garcia and colleagues, with an educational nikki from [employer]. Thrive Questionnaire Date Thrive assessed: 04/29/25 I am a: Patient What is your living situation today?: I have a steady place to live Within the past 12 months, did the food you bought not last and you didn't have the money to get more?: Never true Within the past 12 months, did you worry whether your food would run out before you got money to buy more?: Never true Do you have trouble paying for medicines?: No Do you have trouble getting transportation to medical appointments?: No Do you have trouble paying your heating and electricity bill?: No Do you have trouble taking care of your child, family member or friend?: No Do you have trouble with day-to-day activities such as bathing, preparing meals, shopping, managing finances, etc.?: No Are you currently unemployed and looking for a job?: No Are you interested in more education?: No Please select the resources that you would like help with: None Currently or been in a relationship where the following occur: No concerns reported THRIVE Score: 0 AUDIT C Alcohol Use Questionnaire (AUDIT-C) 1. How often do you have a drink containing alcohol?: 2-3 times a week 2. How many drinks containing alcohol do you have on a typical day when you are drinking?: 1 or 2 3. How often do you have six or more drinks on one occasion?: Never Total Score: 3 Score Reviewed/Action Taken: Yes FARIDEH-7 AMB Questionnaire FARIDEH-7 Date FARIDEH - 7 assessed: 04/29/25 Feeling nervous, anxious, or on edge: 0 = Not at all Not being able to stop or control worryin = Not at all Worrying too much about different things: 0 = Not at all Trouble relaxin = Not at all Being so restless that it is hard to sit still: 0 = Not at all Becoming easily annoyed or irritable: 0 = Not at all Feeling afraid as if something awful might happen: 0 = Not at all Total FARIDEH-7 score (0-4 normal; 5-9 mild; 10-14 moderate; 15-21 severe): 0 Source: Developed by Drs. Erik Forrester, Jes Carias, Dav Garcia and colleagues, with an educational nikki from [employer]. FARIDEH-7 Assessment Billing FARIDEH-7 Assessment Tool: FARIDEH-7 Assessment 25401 Review of Systems Const Details: Denies chills, Denies fatigue, Denies fever(s), Denies headache(s) and Denies weakness HEENT Denies change in vision, Denies dizziness, Denies headache(s), Denies hearing loss, Denies nasal congestion, Denies sinus pain, Denies sinus pressure and Denies sore throat Card Denies chest pain, Denies lightheadedness, Denies dyspnea and Denies other (palpitations) Resp Denies cough, Denies dyspnea and Denies wheezing GI Denies abdominal pain, Denies melena, Denies hematochezia, Denies change in bowel habits, Denies dyspepsia and Denies nausea Denies hematuria and Denies dysuria Musc Denies abnormal gait, Denies myalgias, Denies arthralgias, Denies numbness and Denies tingling Skin/Breast Denies rash, Denies unusual bruising and Denies wounds Neuro Denies abnormal gait, Denies dizziness, Denies headache(s), Denies memory loss, Denies numbness, Denies Sensory deficit (Neuro), Denies tingling and Denies weakness Psych Denies anxiety, Denies depression and Denies memory loss Endo Denies cold intolerance, Denies fatigue, Denies heat intolerance, Denies polydipsia and Denies polyuria Abraham/Lymph Denies easy bleeding and Denies easy bruising Aller/Immun Denies wheezing Physical exam (Primary Care) Vital Signs: Last Vital Signs Temp 97.8 F 04/29/25 10:06 Pulse 87 04/29/25 10:06 Resp 16 04/29/25 10:06 BP 120/72 04/29/25 10:06 Pulse Ox 99 04/29/25 10:06 Oxygen Delivery Method Room Air 04/29/25 10:06 BMI result Body Mass Index 23.8 Tobacco/Smoking Status: Tobacco use Status Tobacco use date assessed 04/29/25 04/29/25 10:08 Patient Tobacco Use Status Former Tobacco user 04/29/25 10:08 e-Cigarette/Vaping Use Never Used 04/29/25 10:08 PHQ-9: PHQ-9 Score PHQ-9: Total score 0 04/29/25 10:13 Depression Screening Interpretation: Negative Thrive Assessment: Date of Thrive Assessment Date Thrive assessed 04/29/25 04/29/25 10:08 Currently or been in a relationship where the following occur: No concerns reported Const Other: General: no acute distress, well developed, alert and awake Nutritional Appearance: well nourished Orientation/consciousness: patient oriented x3 HENMT Head: Yes normocephalic and Yes atraumatic Ears: hearing grossly normal bilaterally and TM's normal bilaterally General nose exam: Normal external nose present and Normal nares present Mouth: Normal oral and palatal mucosa present and moist mucous membranes Teeth and gingiva: dentition normal Throat: Yes oropharynx normal Eyes Pupils: Equal, round and reactive pupils present and Pupil accommodation reflex normal EOM: EOMs intact bilaterally Neck Neck: Yes normal visual inspection, Yes no lymphadenopathy and Yes trachea midline Thyroid: Thyroid normal Carotids: no bruits Lymphatic: no lymphadenopathy noted Chest Chest palpation & inspection: normal inspection of the chest Resp Effort & Inspection: normal respiratory effort Auscultation: clear to auscultation bilaterally Cardio Rate: regular rate Rhythm: regular rhythm Heart sounds: S1 normal heart sound present, S2 normal heart sound present, no gallops, no murmurs and no rubs Bruits: no abdominal aortic bruits and no carotid bruits GI Palpation (GI): No Abdominal aortic bruit present, Soft to palpation, nontender, No hepatosplenomegaly present and No Rebound tenderness present Auscultation: normal bowel sounds General: Yes no CVA tenderness Back/Spine/Pelvis Back: no CVA tenderness Cervical Spine: cervical ROM normal and No Cervical spine tenderness Thoracic/Lumbar Spine: thoraco-lumbar ROM normal, No pain with thoraco-lumbar ROM, No thoracic spinal tenderness and No lumbar spinal tenderness Skin General: warm and dry. Normal skin color. Normal skin turgor Lesions: no lesions Rashes: no rashes Trauma: no lacerations or abrasions Wounds: no wounds Nails: normal Neuro General: patient oriented x3, gait normal and CN's II-XI intact bilaterally Cranial nerves: Yes Equal, round and reactive pupils present Cognition (Neuro): normal cognition Gait exam (Neuro): Normal gait present Motor exam (neuro): 5/5 motor strength present throughout Sensory Exam: No Sensory deficit (Neuro) Deep tendon reflexes (DTR's): Right patellar reflex intensity grade: 2+ and Left patellar reflex intensity grade: 2+ Extrem General: Yes normal to inspection, No edema and No calf tenderness Psych Appearance: grossly normal Affect: normal affect Attitude: cooperative Thought process: Normal thought process present Coding Level of Care Code Est Pt Level 4 (67804) Est Pt Prev Care 40-64y(36893) Diagnoses Normal physical examination, routine Z00.00 Hypercholesterolemia E78.00 Elevated fasting glucose R73.01 Leukopenia D72.819 Microcytic anemia D50.9 Vitamin D deficiency E55.9 Additional Codes FARIDEH-7 Assessment Billing - FARIDEH-7 Assessment Tool: FARIDEH-7 Assessment 18339 ([id number]) PHQ-9 - 12498 - PHQ-9 Billing: Yes ([id number]) Assessment & Plan Assessment & Plan (1) Normal physical examination, routine: Code(s): Z00.00 - Encounter for general adult medical examination without abnormal findings Category: Medical Plan: No significant functional limitation noted. Healthy diet and routine exercise encouraged. Form level follow-up for telehealth visit in 2 months for labs review. Return sooner with symptoms or concerns. Verbalized understanding and agreed with the plan. (2) Hypercholesterolemia: Code(s): E78.00 - Pure hypercholesterolemia, unspecified Category: Medical Plan: Recent total cholesterol and LDL levels are elevated, 207 and 130 respectively. Advised to limit foods high in saturated fat and avoid foods high in trans fat. Routine exercise encouraged. Fast for 10-12 hours, may drink water, and performed lipid panel blood work 2-3 days before next visit. Follow-up for telehealth visit in 2 months. Verbalized understanding and agreed with the plan. (3) Elevated fasting glucose: Code(s): R73.01 - Impaired fasting glucose Category: Medical Plan: Recent fasting glucose is slightly elevated, 100. Healthy diet and routine exercise encouraged. Will recheck fasting glucose and make changes as needed. Verbalized understanding and agreed with the plan. (4) Leukopenia: Code(s): D72.819 - Decreased white blood cell count, unspecified Category: Medical Plan: Recent WBC is low, 3.2. He has history of low WBC. Will check vitamin B12 and folate levels and make changes as needed. Verbalized understanding and agreed with the plan. (5) Microcytic anemia: Code(s): D50.9 - Iron deficiency anemia, unspecified Category: Medical Plan: Recent H&H levels slightly low, 13.6/40.9 respectively. MCV is normal. Will recheck CBC and check iron profile, ferritin level, vitamin B12, and folate levels. Verbalized understanding and agreed with the plan. (6) Vitamin D deficiency: Code(s): E55.9 - Vitamin D deficiency, unspecified Category: Medical Plan: Recent vitamin-D level is low, 21.4. Vitamin D3 25 mcg daily ordered; advised to take as prescribed. Informed that the sun is a good source of vitamin-D. Will recheck vitamin D level in 2 months. Verbalized understanding and agreed with the plan. Orders: Orders Vitamin B12 and Folate 2 Months D50.9 - Iron deficiency anemia, unspecified, D72.819 - Decreased white blood cell count, unspecified Glucose Fasting 2 Months R73.01 - Impaired fasting glucose Complete Blood Count Auto Diff 2 Months D50.9 - Iron deficiency anemia, unspecified, D72.819 - Decreased white blood cell count, unspecified Lipid Panel 2 Months E78.00 - Pure hypercholesterolemia, unspecified Vitamin D 25-OH Total 2 Months E55.9 - Vitamin D deficiency, unspecified Medications: Refilled cholecalciferol (vitamin D3) 25 mcg PO DAILY 90 tabs 3RF 90 days
[2025-04-29 10:06] VITALS: BP 120/72; PULSE 87; RESP 16; TEMP 36.6; O2SAT 99; BMI 23.8
== END 2025-04-29 10:39 | disposition home or self-care (01) ==
LOC: HO.HMCFM 10:00
PROVIDERS: Visit Provider Nurse Practitioner Family
DX: Z00.00 Encounter for general adult medical examination without abnormal findings (principal); E78.00 Pure hypercholesterolemia, unspecified; R73.01 Impaired fasting glucose; D72.819 Decreased white blood cell count, unspecified; D50.9 Iron deficiency anemia, unspecified; E55.9 Vitamin D deficiency, unspecified

== ENCOUNTER → 2025-04-29 09:59 | Outpatient (BNVA) | payer OTHER, SELFPAY | PROVIDERS: Visit Provider Nurse Practitioner Family | DX: Z00.00 Encounter for general adult medical examination without abnormal findings (principal); E78.00 Pure hypercholesterolemia, unspecified; R73.01 Impaired fasting glucose; D72.819 Decreased white blood cell count, unspecified; D50.9 Iron deficiency anemia, unspecified; E55.9 Vitamin D deficiency, unspecified | CPT/HCPCS: 96127 ==

== ENCOUNTER 2025-08-26 07:11 | Outpatient (REF) | payer OTHER, SELFPAY ==
[2025-08-26 07:23] LABS: MANUAL DIFF FLAG NO
[2025-08-26 07:49] LABS: Hematocrit 43.2 % (42.0-52.0); Hemoglobin 13.7 g/dl (14.0-18.0); Imm Gran Abs Auto 0.01 X10*3/uL (0.00-0.03); Imm Gran Pct Auto 0.3 % (0.0-0.4); Lymphocytes Absolute Auto 1.4 X10*3/uL (1.2-4.9); Mean Corpuscular HGB Conc 31.7 g/dl (31.0-36.0); Mean Corpuscular Hemoglobin 26.4 pg (27.0-33.0); Mean Corpuscular Volume 83.2 fL (80.0-98.0); NRBC Abs Auto 0.000 X10*3/uL (0.0-0.012); NRBC Pct Auto 0.0 /100WBC (0.0-0.2); Platelet Count 283 X10*3/uL (160-400); Red Blood Count 5.19 X10*6/uL (4.60-5.80); White Blood Count 3.8 X10*3/uL (4.8-10.8)
[2025-08-26 08:20] LABS: Cholesterol 216 mg/dL (<200); HDL Cholesterol 59 mg/dL (>40); Triglycerides 55 mg/dL (<150)
[2025-08-26 08:59] LABS: Folate 9.4 ng/mL (> or = 4.0); Vitamin B12 428 pg/mL (200-900)
== END 2025-08-26 07:12 | disposition home or self-care (01) ==
LOC: HO.LAB 07:11
PROVIDERS: PCP Nurse Practitioner Family; Visit Provider Nurse Practitioner Family
DX: R73.01 Impaired fasting glucose (principal); D50.9 Iron deficiency anemia, unspecified; D72.819 Decreased white blood cell count, unspecified; E78.00 Pure hypercholesterolemia, unspecified; E55.9 Vitamin D deficiency, unspecified
CPT/HCPCS: 36415; 80061; 82306; 82607; 82746; 82947; 85025

== ENCOUNTER 2025-09-01 15:40 | Outpatient (AMB) | payer OTHER, SELFPAY ==
--- NOTE | 2025-09-01 15:37 | MHC.PC.OV ---
Intake Visit Reasons: Reschedule Telehealth 2 mos labs review Intake Note: patient here for 2 month Telehealth follow up on labs review [employer] Required: No Allergies Penicillins (PENICILLINS) Allergy (Mild, Verified 09/01/25 15:37) RASHES, CRAMPING penicillin V Allergy (Unknown, Verified 09/01/25 15:37) Unknown Tobacco use date assessed: 09/01/25 Dental Screening Dental Screen Date: 09/01/25 Did you have a dental visit in the last 12 months?: Yes Did you have a dental problem in the last 6 months where you did not have access to dental care?: No Was dental information given to patient?: Patient has dentist HPI HPI Comments History of Present Illness Details 55-year-old male presents for telehealth visit for review of recent lab results. He notes he has not taken vitamin-D 3 since he ran out a refill about 3 weeks ago. He notes that he consumes significant amount of process food. He started lifting weights but has not started cardio. He has cut down his drinking to 1 beer or non weekly from 6-7 beers weekly. He offers no complaints and denies acute symptoms at this time. [facility] Medical History Tinea pedis History of right shoulder fracture Surgical History History of arthroscopy of right shoulder H/O left wrist surgery Family History Mother High blood pressure Glaucoma Father Dementia Alzheimer's dementia Social History (Updated 04/29/25 @ 10:06 by Marnie Antonio MA) Household Members: Spouse and Family Both parents involved: No Caregiver staying overnight: No Housing: House Are you a primary wound care center consultant to a significant other at home: No Do you presently have visiting nurse or other home services: No 75 years or older and lives alone: No Alcohol intake: current Alcohol intake frequency: a few times a week Alcohol type: beer Patient Tobacco Use Status: Former Tobacco user e-Cigarette/Vaping Use: Never Used Second Hand Smoke Exposure: Yes service: No Current occupational status: employed 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 Erik Forrester, Jes Carias, Dav Garcia and colleagues, with an educational nikki from [employer]. Review of Systems Const Details: Denies chills, Denies fatigue, Denies fever(s), Denies headache(s) and Denies weakness Cardiac Denies chest pain, Denies claudication, Denies leg edema, Denies lightheadedness, Denies palpitations, Denies dyspnea, Denies dyspnea on exertion, Denies orthopnea and Denies other (Loss of consciousness) Resp Denies cough, Denies excessive phlegm production, Denies dyspnea, Denies dyspnea on exertion, Denies snoring and Denies wheezing Physical exam (Primary Care) Tobacco/Smoking Status: Tobacco use Status Tobacco use date assessed 09/01/25 09/01/25 15:38 Patient Tobacco Use Status Former Tobacco user 09/01/25 15:38 e-Cigarette/Vaping Use Never Used 09/01/25 15:38 Thrive Assessment: Date of Thrive Assessment Date Thrive assessed 04/29/25 09/01/25 15:38 Const Other: Patient is alert and oriented x4 Telehealth Telehealth Telehealth Platform: Telephone Location of provider rendering services: practice address Location of patient: address on file Patient Identification confirmed using: Name, : Yes Telehealth method: voice only Patient verbally consented to treatment: Yes Patient verbally consented to billing insurance company: Yes Patient informed of any privacy concerns related to visit: Yes Coding Level of Care Code Tele Est Pt Level 3 (64019) Diagnoses Hypercholesterolemia E78.00 Microcytic anemia D50.9 Elevated fasting glucose R73.01 Vitamin D deficiency E55.9 Leukopenia D72.819 Time Spent (min) 15 Assessment & Plan Assessment & Plan (1) Hypercholesterolemia: Code(s): E78.00 - Pure hypercholesterolemia, unspecified Category: Medical Plan: Recent total cholesterol and LDL levels are elevated, 216 and 146 respectively; previous levels were 207 and 130 respectively. Triglycerides and HDL levels are normal. Advised to limit foods high in saturated fat and avoid foods high in trans fat. Routine exercise encouraged. Fast for 10-12 hours, may drink water, and perform lipid panel blood work a few days before next visit. Follow-up in 2 months with a new PCP within the practice for transfer of care and labs review. Return sooner with symptoms or concerns. Verbalized understanding and agreed with the plan. (2) Microcytic anemia: Code(s): D50.9 - Iron deficiency anemia, unspecified Category: Medical Plan: Recent H&H and MCV are unremarkable. (3) Elevated fasting glucose: Code(s): R73.01 - Impaired fasting glucose Category: Medical Plan: Recent fasting glucose is normal. (4) Vitamin D deficiency: Code(s): E55.9 - Vitamin D deficiency, unspecified Category: Medical Plan: Recent vitamin-D level is slightly low, 26.3, previous level was 21.4. He has not taken vitamin-D 3 since he ran out a refill about 3 weeks ago. Encouraged to request refill of vitamin-D 3 from the pharmacy and take as prescribed. Perform vitamin-D blood work in 2 months. Verbalized understanding and agreed with the plan. (5) Leukopenia: Code(s): D72.819 - Decreased white blood cell count, unspecified Category: Medical Plan: Recent WBC is low, 3.8, previous level was 3.2; folate and vitamin B12 levels are normal. Equivocal. Will monitor WBC annually or if clinically indicated. Orders: Orders Vitamin D 25-OH Total 2 Months E55.9 - Vitamin D deficiency, unspecified Lipid Panel 2 Months E78.00 - Pure hypercholesterolemia, unspecified
== END 2025-09-01 17:05 ==
LOC: HO.HMCFM 15:40
PROVIDERS: PCP Nurse Practitioner Family; Visit Provider Nurse Practitioner Family
DX: E78.00 Pure hypercholesterolemia, unspecified (principal); D50.9 Iron deficiency anemia, unspecified; R73.01 Impaired fasting glucose; E55.9 Vitamin D deficiency, unspecified; D72.819 Decreased white blood cell count, unspecified